=== PATIENT | female | born 1975 | race Caucasian/White ===

== ENCOUNTER 2022-05-26 10:38 | Day surgery (SDC) | payer BC ==
[2022-05-25 10:56] VITALS: BMI 28.7
[2022-05-25 12:32] LABS: Hemoglobin 15.2 g/dL (12.0-15.5); Mean Corpuscular HGB CONC 34.9 g/dL (32.0-36.0); Mean Corpuscular Hemoglobin 32.8 pg (27.0-33.0); Mean Platelet Volume 9.2 fl (7.4-10.4); Platelet Count 531 10x3/uL (150-450); RBC Distribution Width 12.4 % (11.5-14.5); Red Blood Cell (RBC) Count 4.63 10x6/uL (3.90-5.03); White Blood Cell (WBC) Count 12.8 10x3/uL (3.5-10.5)
[2022-05-25 13:06] LABS: BHCG - Serum Negative (NEGATIVE)
[2022-05-25 13:07] LABS: Pregs Control Background? CLEAR/WHITE (CLR/WHITE); Pregs Control Bar Appear? YES (CONTROL BAR)
[2022-05-26] MEDS ORDERED: Gabapentin 300 MG CAP ONE (11:43)
[2022-05-26] MEDS ORDERED: Famotidine/PF 20 mg/2ml Vial ONE (11:43)
[2022-05-26] MEDS ORDERED: CeleCOXIB 100 MG CAP ONE (11:44)
[2022-05-26] MEDS ORDERED: CEFAZOLIN 2 GM VIAL ONE (14:09)
[2022-05-26] MEDS ORDERED: Propofol 1,000 MG/100 ML VIAL IV ONE (14:26)
[2022-05-26] MEDS ORDERED: HYDROmorphone 0.5 MG/0.5 ML SYRINGE ONE (14:26)
[2022-05-26] MEDS ORDERED: SUGAMMADEX SODIUM 200 MG/2 ML VIAL ONE (14:26)
[2022-05-26] MEDS ORDERED: Bupivacaine PF 0.5% 30 ML VIAL ONE (14:33)
[2022-05-26] MEDS ORDERED: ePHEDrine Sulfate 50 MG/10 ML VIAL ONE (15:10)
[2022-05-26] MEDS ORDERED: Dexamethasone 4 mg/ml Vial ONE (15:16)
[2022-05-26] MEDS ORDERED: Ondansetron PF 4 MG/2 ML Vial ONE (15:16)
[2022-05-26] MEDS ORDERED: Fentanyl 100 MCG/2 ML VIAL ONE (16:59)
[2022-05-26] MEDS ORDERED: HYDROcodone/Acetaminophen 5/325 mg Tablet ONE (18:18)
== END 2022-05-26 18:35 | disposition home or self-care (01) ==
LOC: CSHSDC 10:38
PROVIDERS: ATTEND Student in an Organized Health Care Education/Training Program
PROC: 0UT94ZZ Resection of Uterus, Percutaneous Endoscopic Approach (ICD-10-PCS; principal; 2022-05-26)
PROC: 0UT14ZZ Resection of Left Ovary, Percutaneous Endoscopic Approach (ICD-10-PCS; principal; 2022-05-26)
PROC: 0UT54ZZ Resection of Right Fallopian Tube, Percutaneous Endoscopic Approach (ICD-10-PCS; principal; 2022-05-26)
DX: D25.9 Leiomyoma of uterus, unspecified (principal); N80.03 Adenomyosis of the uterus; N88.8 Other specified noninflammatory disorders of cervix uteri; N83.12 Corpus luteum cyst of left ovary; N93.9 Abnormal uterine and vaginal bleeding, unspecified; Z88.8 Allergy status to other drugs, medicaments and biological substances; Z90.49 Acquired absence of other specified parts of digestive tract; Z98.890 Other specified postprocedural states
CPT/HCPCS: 36415; 84703; 85027; 86850; 86900; 86901; 88307; J1100; J1170; J2405; J2704; J3010; S0020; S0028